=== PATIENT | male | born 1985 | race Two or more races ===

== ENCOUNTER → 2019-01-12 | Outpatient (CLI) | payer OTHER ==
--- NOTE | 2019-01-12 19:00 | REP ---
LEFT 3RD DIGIT: Four views of the left 3rd digit are performed. There is mild soft-tissue swelling without evidence of acute fracture, dislocation, or intrinsic bone disease. Electronically Signed by Nazario Najera MD 01/13/2019 11:42 P
== END ==
LOC: M LRY 16:16
PROVIDERS: ATTEND Nurse Practitioner Family
DX: S69.92XA Unspecified injury of left wrist, hand and finger(s), initial encounter (principal); Y93.61 Activity, american tackle football; Y92.9 Unspecified place or not applicable
CPT/HCPCS: 73140; G0463

== ENCOUNTER 2024-01-04 21:20 | Emergency (ER) | payer OTHER ==
[~2024-01-04] VITALS: Ht 160 cm; Wt 88.6 kg
[2024-01-04 21:20] VITALS: BP 126/78; TEMP 97.6; O2SAT 97
== END 2024-01-04 23:19 | disposition left against medical advice (07) ==
LOC: M ED 21:20
DX: Z53.21 Procedure and treatment not carried out due to patient leaving prior to being seen by health care provider (principal)